=== PATIENT | female | born 1965 | race Caucasian/White ===

== ENCOUNTER → 2025-01-05 | Outpatient (CLI) | payer BC, SELFPAY ==
[2025-01-05 08:56] LABS: Alanine Aminotransferase 18 U/L (10-49); Albumin, Serum 4.8 gm/dL (3.4-4.8); Albumin/Globulin Ratio 3.0 (1.2-2.2); Alkaline Phosphatase 81 U/L (46-116); Anion Gap 8 (7-16); Aspartate Amino Transferase 25 U/L (0-34); BUN/Creatinine Ratio 13 Ratio (12-20); Bilirubin,Total 0.6 mg/dL (0.3-1.2); Blood Urea Nitrogen 12 mg/dL (9-23); Calcium 9.2 mg/dL (8.3-10.6); Calcium (Corrected) 9.2 mg/dL (8.5-10.1); Carbon Dioxide 29.1 mMol/L (20.0-31.0); Cardiac Risk Estimate 2.6 RATIO (3.7-5.6); Chloride 106 mMol/L (98-107); Cholesterol 163 mg/dL (132-200); Creatinine (Component) 0.9 mg/dL (0.6-1.3); Globulin 1.6 gm/dL (2.3-3.5); Glucose 90 mg/dL (74-106); HDL Cholesterol 62 mg/dL (40-60); LDL Cholesterol,Calculated 76 mg/dL (0-130); Osmolality,Calculated 284 (275-295); Potassium 4.5 mMol/L (3.4-5.1); Sodium 143 mMol/L (136-145); Total Protein 6.4 gm/dL (5.7-8.2); Triglycerides 126 mg/dL (30-150); eGFR > 60 See Note
== END | disposition home or self-care (01) ==
PROVIDERS: PCP Student in an Organized Health Care Education/Training Program; Referring Provider Student in an Organized Health Care Education/Training Program; Visit Provider Student in an Organized Health Care Education/Training Program
DX: E78.2 Mixed hyperlipidemia (principal)
CPT/HCPCS: 36415; 80053; 80061